=== PATIENT | female | born 1940 | race African-American/Black ===

== ENCOUNTER 2016-12-16 20:40 | Emergency (ER) | payer OTHER, MEDICAID ==
[~2016-12-16] VITALS: Ht 162.6 cm; Wt 54.0 kg
[~2016-12-16 20:40] MED LIST: ATORVASTATIN; CLONIDINE; [UNRECOGNIZED DRUG - OTHER]
[2016-12-16 21:41] LABS: EOSINOPHILS % 0.3 % (0.0-5.0); HEMATOCRIT. 33.3 % (36.0-48.0); HEMOGLOBIN. 10.9 g/dL (12.0-16.0); LYMPHOCYTES % 14.4 % (20.0-50.0); MEAN CORPUSCULAR HEMOGLOBIN 27.4 pg (28.0-32.0); MEAN CORPUSCULAR HGB CONC 32.7 g/dL (31.0-37.0); MEAN CORPUSCULAR VOLUME 83.7 fL (81.0-99.0); MEAN PLATELET VOLUME 8.3 fl (7.4-10.4); MONOCYTES % 1.9 % (2.0-8.0); NEUTROPHILS % 82.4 % (40.0-76.0); PLATELET 216 x1000/uL (130-400); RED BLOOD CELL COUNT 3.98 mill/uL (4.2-5.4); RED CELL DISTRIBUTION WIDTH 16.2 % (11.6-14.6); WHITE BLOOD COUNT 4.8 x1000/uL (4.5-11.0)
[2016-12-16 21:45] LABS: CHLORIDE 106 mEq/L (98-107); INDEX HEMOLYSI 1 (1-3); INDEX ICTERIC 1 (1-4); INDEX LIPEMIC 1 (1-3)
[2016-12-16 21:46] LABS: INR 1.1
[2016-12-16 21:50] LABS: ALBUMIN 3.2 g/dL (3.4-5.0); ANION GAP 12; CALCIUM 8.6 mg/dL (8.5-10.1); CARBON DIOXIDE 29 mEq/L (21-32); ETHANOL BLOOD < 10 mg/dL; UREA NITROGEN BLOOD 12 mg/dL (7-21)
[2016-12-16 21:51] LABS: AMMONIA < 10 uMol/L (<32)
[2016-12-16 21:52] LABS: ALANINE AMINOTRANSFERASE 13 IU/L (13-61); eGFR > 60 mL/min (>60)
[2016-12-16 21:55] LABS: CREATINE KINASE 71 IU/L (26-192)
[2016-12-16 21:56] LABS: TROPONIN I 0.04 ng/mL (0.00-0.04)
[2016-12-16] MEDS ORDERED: HYDRALAZINE 20MG/ML VIAL IV ONE (22:30)
[2016-12-16] MEDS ORDERED: ONDANSETRON HCL 4MG/2ML VIAL IV ONE (22:30)
[2016-12-16 22:34] LABS: CLARITY URINE CLEAR (CLEAR); COLOR URINE YELLOW (YELLOW); GLUCOSE URINE NEGATIVE (NEGATIVE); KETONES URINE TRACE (NEGATIVE); LEUKOCYTE ESTERASE URINE NEGATIVE (NEGATIVE); NITRITE URINE NEGATIVE (NEGATIVE); OCCULT BLOOD URINE NEGATIVE (NEGATIVE); PH URINE 7.5 (4.5-8.0); PROTEIN URINE 2+ (NEGATIVE); UROBILINOGEN URINE 0.2 E.U./dL (0.2-1.0)
[2016-12-16 22:40] LABS: BACTERIA URINE 1+; CALCIUM PHOSPHATE CRYSTALS UR NONE SEEN /lpf; SQUAMOUS EPITHELIAL CELL URINE 2+ /lpf (RARE/1+); WAXY CASTS URINE NONE SEEN /lpf; WBC URINE 0-2 /hpf (0-2); YEAST URINE NONE SEEN
[2016-12-16 22:52] LABS: *AMPHETAMINES SCREEN URINE NEGATIVE (NEGATIVE); *BARBITURATES SCREEN URINE NEGATIVE (NEGATIVE); *BENZODIAZEPINES SCREEN URINE NEGATIVE (NEGATIVE); *COCAINE SCREEN URINE NEGATIVE (NEGATIVE); CANNABINOID URINE SCREEN NEGATIVE (NEGATIVE); ECSTASY MDMA SCREEN URINE NEGATIVE (NEGATIVE); METHADONE URINE SCREEN NEGATIVE (NEGATIVE); OPIATES URINE SCREEN NEGATIVE (NEGATIVE); PHENCYCLIDINE URINE SCREEN NEGATIVE (NEGATIVE)
[2016-12-16] MEDS ORDERED: POTASSIUM CHLORIDE 20MEQ TABLET SR PO ONE (23:15)
[2016-12-17] MEDS ORDERED: ONDANSETRON HCL 4MG/2ML VIAL IV STA (00:12)
[2016-12-17] MEDS ORDERED: HYDRALAZINE 20MG/ML VIAL IV ONE (00:15)
[2016-12-17] MEDS ORDERED: DEXTROSE 50% WATER 50ML SYRINGE IV ONE (00:45)
[2016-12-17 00:46] VITALS: BP 184/88
== END 2016-12-17 03:42 | disposition short-term general hospital (02) ==
LOC: ER 20:44
DX: I67.4 Hypertensive encephalopathy (principal); E87.6 Hypokalemia; R10.13 Epigastric pain; E11.9 Type 2 diabetes mellitus without complications; I51.9 Heart disease, unspecified; Z79.82 Long term (current) use of aspirin
CPT/HCPCS: 36415; 70450; 71010; 74176; 80053; 80305; 81001; 82140; 82550; 82962; 84484; 85025; 85610; 93005; 96374; 96375; 96376; 99291; G0482; J0360; J2405

== ENCOUNTER 2016-12-21 09:45 | Emergency (ER) | payer OTHER, MEDICAID ==
[~2016-12-21] VITALS: Ht 160 cm; Wt 50.0 kg
[2016-12-21 10:28] LABS: EOSINOPHILS % 3.7 % (0.0-5.0); HEMATOCRIT. 25.1 % (36.0-48.0); HEMOGLOBIN. 8.3 g/dL (12.0-16.0); LYMPHOCYTES % 19.7 % (20.0-50.0); MEAN CORPUSCULAR HEMOGLOBIN 27.8 pg (28.0-32.0); MEAN CORPUSCULAR VOLUME 84.5 fL (81.0-99.0); MONOCYTES % 5.7 % (2.0-8.0); NEUTROPHILS % 69.9 % (40.0-76.0); PLATELET 138 x1000/uL (130-400); RED BLOOD CELL COUNT 2.97 mill/uL (4.2-5.4)
[2016-12-21 10:31] LABS: CHLORIDE 106 mEq/L (98-107)
[2016-12-21 10:34] LABS: INR 1.1; PARTIAL THROMBOPLASTIN TIME 28.1 sec (24.0-34.0); PROTHROMBIN TIME 11.4 sec
[2016-12-21 10:43] LABS: CARBON DIOXIDE 28 mEq/L (21-32); CREATINE KINASE 57 IU/L (26-192); CREATINE KINASE MB FRACTION 1.1 ng/mL (0.5-3.6); TROPONIN I 0.04 ng/mL (0.00-0.04)
[2016-12-21] MEDS ORDERED: FUROSEMIDE 20MG/2ML VIAL IVP ONE (11:00)
[2016-12-21 11:30] LABS: CLARITY URINE CLOUDY (CLEAR); COLOR URINE YELLOW (YELLOW); GLUCOSE URINE NEGATIVE (NEGATIVE); KETONES URINE NEGATIVE (NEGATIVE); LEUKOCYTE ESTERASE URINE TRACE (NEGATIVE); NITRITE URINE NEGATIVE (NEGATIVE); OCCULT BLOOD URINE NEGATIVE (NEGATIVE); PH URINE 6.5 (4.5-8.0); PROTEIN URINE 2+ (NEGATIVE); SPECIFIC GRAVITY URINE 1.013 (1.005-1.030); UROBILINOGEN URINE 0.2 E.U./dL (0.2-1.0)
[2016-12-21 12:31] VITALS: BP 161/76
== END 2016-12-21 12:54 | disposition short-term general hospital (02) ==
LOC: ER 10:01
DX: I11.0 Hypertensive heart disease with heart failure (principal); I50.41 Acute combined systolic (congestive) and diastolic (congestive) heart failure; E11.9 Type 2 diabetes mellitus without complications; Z88.6 Allergy status to analgesic agent
CPT/HCPCS: 36415; 71010; 80053; 81001; 82550; 82553; 82962; 83690; 83880; 84443; 84484; 85025; 85610; 85730; 93005; 96374; 99291; J1940

== ENCOUNTER 2017-01-03 14:33 | Emergency (ER) | payer OTHER, MEDICAID ==
[~2017-01-03] VITALS: Ht 162.6 cm; Wt 65.0 kg
[2017-01-03] MEDS ORDERED: SODIUM CHLORIDE 0.9% 500 ML IV ONE (15:15)
[2017-01-03 15:36] LABS: BASOPHILS % 0.8 % (0.0-2.0); HEMATOCRIT. 28.5 % (36.0-48.0); HEMOGLOBIN. 9.8 g/dL (12.0-16.0); LYMPHOCYTES % 9.4 % (20.0-50.0); MEAN CORPUSCULAR HEMOGLOBIN 29.4 pg (28.0-32.0); MEAN PLATELET VOLUME 8.9 fl (7.4-10.4); MONOCYTES % 3.1 % (2.0-8.0); NEUTROPHILS % 84.7 % (40.0-76.0); PLATELET 179 x1000/uL (130-400); RED BLOOD CELL COUNT 3.35 mill/uL (4.2-5.4); RED CELL DISTRIBUTION WIDTH 15.5 % (11.6-14.6)
[2017-01-03 15:48] LABS: CARBON DIOXIDE 27 mEq/L (21-32); CHLORIDE 108 mEq/L (98-107); TROPONIN I < 0.02 ng/mL (0.00-0.04)
[2017-01-03] MEDS ORDERED: DEXTROSE 50% WATER 50ML SYRINGE IV ONE (16:00)
[2017-01-03 16:29] LABS: CLARITY URINE CLEAR (CLEAR); COLOR URINE YELLOW (YELLOW); GLUCOSE URINE NEGATIVE (NEGATIVE); KETONES URINE NEGATIVE (NEGATIVE); LEUKOCYTE ESTERASE URINE 2+ (NEGATIVE); NITRITE URINE NEGATIVE (NEGATIVE); OCCULT BLOOD URINE NEGATIVE (NEGATIVE); PROTEIN URINE 1+ (NEGATIVE); SPECIFIC GRAVITY URINE 1.011 (1.005-1.030); UROBILINOGEN URINE 0.2 E.U./dL (0.2-1.0)
[2017-01-03] MEDS ORDERED: AMOXICILLIN/POTASSIUM CLAVULANATE 875/125MG TAB PO ONE (18:00)
[2017-01-03 20:33] VITALS: BP 153/75
== END 2017-01-03 21:18 | disposition short-term general hospital (02) ==
LOC: ER 14:36
DX: N39.0 Urinary tract infection, site not specified (principal); E11.649 Type 2 diabetes mellitus with hypoglycemia without coma; I10 Essential (primary) hypertension; Z88.6 Allergy status to analgesic agent
CPT/HCPCS: 36415; 71010; 80053; 81001; 82962; 84484; 85025; 87086; 93005; 96361; 96374; 99285; J7040

== ENCOUNTER 2017-02-20 08:29 | Inpatient (IN) | payer OTHER, MEDICAID ==
[~2017-02-20] VITALS: Ht 167.6 cm; Wt 48.1 kg
[2017-02-20] MEDS ORDERED: NITROGLYCERIN OINT 1GM/INCH UDPKT TD STA (08:43)
[2017-02-20] MEDS ORDERED: FUROSEMIDE 40MG/4ML VIAL IV STA (08:43)
[2017-02-20 09:09] LABS: BASOPHILS % 1.1 % (0.0-2.0); EOSINOPHILS % 1.8 % (0.0-5.0); HEMATOCRIT. 26.7 % (36.0-48.0); HEMOGLOBIN. 8.8 g/dL (12.0-16.0); LYMPHOCYTES % 12.9 % (20.0-50.0); MEAN CORPUSCULAR HEMOGLOBIN 29.1 pg (28.0-32.0); MEAN CORPUSCULAR VOLUME 87.7 fL (81.0-99.0); MEAN PLATELET VOLUME 8.9 fl (7.4-10.4); NEUTROPHILS % 80.2 % (40.0-76.0); PLATELET 150 x1000/uL (130-400); RED BLOOD CELL COUNT 3.04 mill/uL (4.2-5.4)
[2017-02-20 09:14] LABS: BG CARBOXYHEMOGLOBIN 0.3 % (0.5-1.5); BG DEOXYHEMOGLOBIN 4.7 % (0.0-5.0); BG FRACTION INSPIRED OXYGEN 28; BG HCO3 ACT 20.6 mmol/L (22.0-26.0); BG METHEMOGLOBIN 0.1 % (0.0-1.5); BG OXYGEN SATURATION 95.3 % (92.0-98.5); BG OXYHEMOGLOBIN 94.9 % (94.0-97.0); BG PCO2 35.3 mmHg (35.0-45.0); BG PH 7.383 (7.350-7.450); BG PO2 86.6 mmHg (75.0-100.0); BG SAMPLE SITE RIGHT BRACHIAL; BG VENT MODE NASAL CANNULA
[2017-02-20 09:16] LABS: INR 1.1; PARTIAL THROMBOPLASTIN TIME 27.8 sec (24.0-34.0); PROTHROMBIN TIME 11.7 sec
[2017-02-20 09:26] LABS: CARBON DIOXIDE 25 mEq/L (21-32); CHLORIDE 107 mEq/L (98-107); CREATINE KINASE 75 IU/L (26-192); TROPONIN I 0.03 ng/mL (0.00-0.04)
[2017-02-20] MEDS ORDERED: LEVOFLOXACIN 750MG PREMIX 150 ML IV ONE (09:45)
[2017-02-20] MEDS ORDERED: CLONIDINE 0.1MG TABLET PO ONE (10:15)
[2017-02-20 15:51] VITALS: BP 180/91
[2017-02-20] MEDS ORDERED: CLONIDINE 0.1MG TABLET PO PRN (17:00)
[2017-02-20] MEDS ORDERED: DEXTROSE 50% WATER 50ML SYRINGE IV PRN (17:00)
[2017-02-20] MEDS: INSULIN LISPRO 100 UNITS/ML SUBCUT SCH ×2 (17:40→21:00)
[2017-02-20] MEDS: BLOOD SUGAR DIAGNOSTIC STRIP TEST SCH ×2 (18:01→21:04)
[2017-02-20 20:00] VITALS: BP 170/83
[2017-02-20 20:40] VITALS: BP 146/85
[2017-02-20] MEDS ORDERED: ALBUTEROL (0.083%) 2.5MG/3ML NEB HHN PRN (22:45)
[2017-02-20] MEDS ORDERED: ACETAMINOPHEN 325MG TABLET PO PRN (22:45)
[2017-02-21] VITALS: BP 148/95
[2017-02-21 04:00] VITALS: BP 142/71
[2017-02-21] MEDS: BLOOD SUGAR DIAGNOSTIC STRIP TEST SCH ×4 (06:41→20:43)
[2017-02-21] MEDS: INSULIN LISPRO 100 UNITS/ML SUBCUT SCH ×4 (06:42→20:43)
[2017-02-21 06:57] LABS: BASOPHILS % 0.9 % (0.0-2.0); EOSINOPHILS % 1.2 % (0.0-5.0); HEMATOCRIT. 24.9 % (36.0-48.0); HEMOGLOBIN. 8.5 g/dL (12.0-16.0); LYMPHOCYTES % 20.7 % (20.0-50.0); MEAN CORPUSCULAR HEMOGLOBIN 30.3 pg (28.0-32.0); MEAN CORPUSCULAR VOLUME 88.7 fL (81.0-99.0); MEAN PLATELET VOLUME 9.4 fl (7.4-10.4); MONOCYTES % 8.5 % (2.0-8.0); NEUTROPHILS % 68.7 % (40.0-76.0); PLATELET 154 x1000/uL (130-400); RED BLOOD CELL COUNT 2.81 mill/uL (4.2-5.4); RED CELL DISTRIBUTION WIDTH 13.3 % (11.6-14.6)
[2017-02-21 08:33] LABS: TROPONIN I 0.05 ng/mL (0.00-0.04)
[2017-02-21] MEDS ORDERED: FUROSEMIDE 40MG/4ML VIAL IVP SCH (09:00)
[2017-02-21] MEDS ORDERED: ASPIRIN 81MG TABLET PO SCH (09:00)
[2017-02-21] MEDS ORDERED: ENOXAPARIN 30MG/0.3ML SYR SUBCUT SCH (09:00)
[2017-02-21] MEDS ORDERED: CLOPIDOGREL 75MG TABLET PO SCH (09:30)
[2017-02-21 10:45] LABS: T4 FREE 1.22 ng/dL (0.76-1.46)
[2017-02-21 12:00] VITALS: BP 146/69
[2017-02-21] MEDS: CARVEDILOL 3.125 MG TABLET PO SCH ×2 (12:09→20:43)
[2017-02-21 16:00] VITALS: BP 138/69
[2017-02-21] MEDS ORDERED: ALBUTEROL (0.083%) 2.5MG/3ML NEB HHN PRN (19:45)
[2017-02-21 20:00] VITALS: BP 158/70
[2017-02-21 20:49] VITALS: BP 158/70
[2017-02-21 20:59] LABS: CREATINE KINASE MB FRACTION 1.3 ng/mL (0.5-3.6)
[2017-02-21] MEDS ORDERED: LEVOFLOXACIN 250MG PREMIX 50 ML IV SCH (21:00)
[2017-02-22] MEDS ORDERED: ALBUTEROL (0.083%) 2.5MG/3ML NEB HHN SCH
== END 2017-02-21 23:14 | disposition short-term general hospital (02) | DRG 291 ==
LOC: ER 08:29 → 8WST 09:56 → EDBEDREQ 09:59 → ENRESERV 13:53
PROVIDERS: ADMIT Family Medicine; ATTEND Family Medicine
DX: I13.0 Hypertensive heart and chronic kidney disease with heart failure and stage 1 through stage 4 chronic kidney disease, or unspecified chronic kidney disease (principal); J18.9 Pneumonia, unspecified organism; I50.41 Acute combined systolic (congestive) and diastolic (congestive) heart failure; I25.10 Atherosclerotic heart disease of native coronary artery without angina pectoris; N18.9 Chronic kidney disease, unspecified; E78.5 Hyperlipidemia, unspecified; E11.22 Type 2 diabetes mellitus with diabetic chronic kidney disease; D64.9 Anemia, unspecified; Z88.6 Allergy status to analgesic agent; Z79.899 Other long term (current) drug therapy
CPT/HCPCS: 36415; 36600; 51702; 71010; 80048; 80053; 80061; 82375; 82550; 82553; 82805; 82962; 83036; 83605; 83690; 83880; 84439; 84443; 84484; 85025; 85379; 85610; 85730; 87040; 93005; 93970; 96365; 96375; 99285; J1650; J1815; J1940; J1956; J7050; A4315

== ENCOUNTER 2017-04-03 06:31 | Inpatient (IN) | payer OTHER, MEDICAID ==
[~2017-04-03] VITALS: Ht 162.6 cm; Wt 55.3 kg
[2017-04-03 07:34] LABS: BG BASE EXCESS -4.8 mmol/L (-2.0-2.0); BG CARBOXYHEMOGLOBIN 0.5 % (0.5-1.5); BG DEOXYHEMOGLOBIN 4.8 % (0.0-5.0); BG FRACTION INSPIRED OXYGEN 36; BG HCO3 ACT 21.2 mmol/L (22.0-26.0); BG METHEMOGLOBIN 0.3 % (0.0-1.5); BG OXYGEN SATURATION 95.2 % (92.0-98.5); BG OXYHEMOGLOBIN 94.4 % (94.0-97.0); BG PO2 84.4 mmHg (75.0-100.0); BG SAMPLE SITE RIGHT BRACHIAL; BG TOTAL HEMOGLOBIN 10.2 g/dL (12.0-18.0); BG VENT MODE NASAL CANNULA
[2017-04-03 08:03] LABS: BASOPHILS % 0.8 % (0.0-2.0); CHLORIDE 108 mEq/L (98-107); EOSINOPHILS % 1.8 % (0.0-5.0); HEMATOCRIT. 29.1 % (36.0-48.0); HEMOGLOBIN. 9.5 g/dL (12.0-16.0); LYMPHOCYTES % 9.1 % (20.0-50.0); MEAN CORPUSCULAR HEMOGLOBIN 29.3 pg (28.0-32.0); MEAN CORPUSCULAR VOLUME 89.8 fL (81.0-99.0); MEAN PLATELET VOLUME 9.4 fl (7.4-10.4); MONOCYTES % 2.5 % (2.0-8.0); NEUTROPHILS % 85.8 % (40.0-76.0); PLATELET 144 x1000/uL (130-400); RED BLOOD CELL COUNT 3.24 mill/uL (4.2-5.4); RED CELL DISTRIBUTION WIDTH 14.8 % (11.6-14.6)
[2017-04-03 08:05] LABS: INR 1.2; PROTHROMBIN TIME 12.5 sec (9.4-11.6)
[2017-04-03 08:15] LABS: CARBON DIOXIDE 26 mEq/L (21-32); TROPONIN I < 0.02 ng/mL (0.00-0.04)
[2017-04-03] MEDS ORDERED: ONDANSETRON HCL 4MG/2ML VIAL IV ONE (08:15)
[2017-04-03] MEDS ORDERED: FUROSEMIDE 40MG/4ML VIAL IVP ONE (08:30)
[2017-04-03] MEDS ORDERED: PIPERACILLIN/TAZ 3.375G PREMIX 50 ML IV SCH (12:30)
[2017-04-03] MEDS ORDERED: ACETAMINOPHEN 325MG TABLET PO PRN (12:30)
[2017-04-03] MEDS ORDERED: HYDROMORPHONE HCL/PF 2MG/ML CPJ IV PRN (12:30)
[2017-04-03] MEDS ORDERED: ONDANSETRON HCL 4MG/2ML VIAL IV PRN (12:30)
[2017-04-03] MEDS ORDERED: IPRATROPIUM/ALBUTEROL 0.5-3(2.5)MG/3ML NEB HHN SCH (12:30)
[2017-04-03 13:00] VITALS: BP 152/76
[2017-04-03 13:58] LABS: HEPATITIS B SURFACE ANTIGEN NEGATIVE
[2017-04-03 14:26] LABS: HEPATITIS B CORE AB IGM NEGATIVE
[2017-04-03 14:28] LABS: HEPATITIS A AB IGM NEGATIVE (NEGATIVE)
[2017-04-03] MEDS: POTASSIUM CHLORIDE 10MEQ TABLET SR PO SCH (15:46)
[2017-04-03] MEDS: PIPERACILLIN/TAZ 3.375G PREMIX 50 ML IV SCH ×2 (15:46→23:02)
[2017-04-03] MEDS: ENOXAPARIN 40MG/0.4ML SYR SUBCUT SCH (15:47)
[2017-04-03] MEDS: CLONIDINE 0.1MG TABLET PO PRN (15:47)
[2017-04-03] MEDS: AMLODIPINE 2.5MG TABLET PO SCH (15:52)
[2017-04-03 16:00] VITALS: BP 161/85
[2017-04-03] MEDS ORDERED: DEXTROSE 50% WATER 50ML SYRINGE IV PRN (16:15)
[2017-04-03 16:30] LABS: CREATINE KINASE MB FRACTION 3.7 ng/mL (0.5-3.6); TROPONIN I 0.02 ng/mL (0.00-0.04)
[2017-04-03] MEDS: BLOOD SUGAR DIAGNOSTIC STRIP TEST SCH ×2 (17:31→20:50)
[2017-04-03] MEDS: INSULIN LISPRO 100 UNITS/ML SUBCUT SCH ×2 (17:47→20:56)
[2017-04-03 17:57] LABS: AMMONIA 17 uMol/L (<32)
[2017-04-03 20:00] VITALS: BP 169/86
[2017-04-03] MEDS: CARVEDILOL 3.125 MG TABLET PO SCH (20:47)
[2017-04-03] MEDS ORDERED: FAMOTIDINE 20MG TABLET PO SCH (21:00)
[2017-04-04] VITALS (8 sets, daily range): BP systolic 141–172; BP diastolic 70–90
[2017-04-04 06:15] LABS: HEMATOCRIT. 29.9 % (36.0-48.0); HEMOGLOBIN. 9.9 g/dL (12.0-16.0); MEAN CORPUSCULAR HEMOGLOBIN 29.5 pg (28.0-32.0); MEAN CORPUSCULAR VOLUME 89.4 fL (81.0-99.0); MEAN PLATELET VOLUME 9.3 fl (7.4-10.4); PLATELET 108 x1000/uL (130-400); RED BLOOD CELL COUNT 3.35 mill/uL (4.2-5.4); RED CELL DISTRIBUTION WIDTH 15.2 % (11.6-14.6)
[2017-04-04] MEDS: BLOOD SUGAR DIAGNOSTIC STRIP TEST SCH ×4 (06:24→21:14)
[2017-04-04 06:42] LABS: CARBON DIOXIDE 25 mEq/L (21-32); CHLORIDE 108 mEq/L (98-107); CREATINE KINASE 155 IU/L (26-192); CREATINE KINASE MB FRACTION 7.8 ng/mL (0.5-3.6); HDL CHOLESTEROL 63 mg/dL (40-59); LDL CHOLESTEROL 57 mg/dL (5-100); TROPONIN I 0.03 ng/mL (0.00-0.04)
[2017-04-04] MEDS: INSULIN LISPRO 100 UNITS/ML SUBCUT SCH ×4 (06:49→21:44)
[2017-04-04] MEDS ORDERED: FAMOTIDINE 20MG TABLET PO SCH (09:00)
[2017-04-04] MEDS ORDERED: CLOPIDOGREL 75MG TABLET PO SCH (09:00)
[2017-04-04] MEDS ORDERED: DOCUSATE SODIUM 250MG CAPSULE PO SCH (09:00)
[2017-04-04] MEDS ORDERED: FUROSEMIDE 40MG/4ML VIAL IVP SCH (09:00)
[2017-04-04] MEDS: POTASSIUM CHLORIDE 10MEQ TABLET SR PO SCH (09:07)
[2017-04-04] MEDS: CARVEDILOL 3.125 MG TABLET PO SCH ×2 (09:07→21:00)
[2017-04-04] MEDS: AMLODIPINE 2.5MG TABLET PO SCH (09:07)
[2017-04-04] MEDS: ENOXAPARIN 40MG/0.4ML SYR SUBCUT SCH (09:32)
[2017-04-04] MEDS: PIPERACILLIN/TAZ 3.375G PREMIX 50 ML IV SCH ×2 (10:10→17:32)
[2017-04-04] MEDS: CLONIDINE 0.1MG TABLET PO PRN (13:13)
[2017-04-04] MEDS ORDERED: IPRATROPIUM BROMIDE (0.02%) 0.5MG/2.5ML NEB HHN SCH (14:00)
[2017-04-04] MEDS ORDERED: SPIRONOLACTONE 25MG TABLET PO SCH (14:45)
[2017-04-04] MEDS ORDERED: FUROSEMIDE 40MG TABLET PO SCH (21:00)
[2017-04-04] MEDS ORDERED: AMLODIPINE 5MG TABLET PO SCH (21:00)
[2017-04-04] MEDS ORDERED: FUROSEMIDE 20MG TABLET PO SCH (21:00)
[2017-04-04 22:45] LABS: PLATELET ESTIMATE DECREASED
== END 2017-04-04 22:39 | disposition short-term general hospital (02) | DRG 291 ==
LOC: ER 06:31 → 5WST 08:29 → EDBEDREQ 08:31 → EDBEDREQTM 08:31 → ENRESERV 11:42 → 5WST 04-04 12:29
PROVIDERS: ADMIT Internal Medicine Geriatric Medicine; ATTEND Internal Medicine Geriatric Medicine
DX: I11.0 Hypertensive heart disease with heart failure (principal); E43 Unspecified severe protein-calorie malnutrition; J96.01 Acute respiratory failure with hypoxia; G93.40 Encephalopathy, unspecified; J18.9 Pneumonia, unspecified organism; E11.65 Type 2 diabetes mellitus with hyperglycemia; D63.8 Anemia in other chronic diseases classified elsewhere; D50.9 Iron deficiency anemia, unspecified; E78.00 Pure hypercholesterolemia, unspecified; E78.5 Hyperlipidemia, unspecified; L85.3 Xerosis cutis; I25.10 Atherosclerotic heart disease of native coronary artery without angina pectoris; I44.0 Atrioventricular block, first degree; I50.23 Acute on chronic systolic (congestive) heart failure; Z82.49 Family history of ischemic heart disease and other diseases of the circulatory system; Z68.20 Body mass index [BMI] 20.0-20.9, adult; Z88.6 Allergy status to analgesic agent; Z79.899 Other long term (current) drug therapy
CPT/HCPCS: 36415; 36600; 70450; 71010; 71250; 76700; 80053; 80061; 82140; 82375; 82550; 82553; 82805; 82962; 83540; 83550; 83735; 83880; 84443; 84484; 85025; 85379; 85610; 86705; 86709; 86803; 86850; 86900; 87086; 87340; 93005; 93306; 93970; 96374; 96375; 97162; 99285; C1893; J1650; J1815; J1940; J2405; J2543; J7050; A4315